=== PATIENT | female | born 1980 | race Two or more races ===

== ENCOUNTER 2019-11-07 09:05 | Outpatient (CLI) | payer MEDICAID ==
[~2019-11-07 09:05] MED LIST: HYDR-3237 PO
[2019-11-07] MEDS ORDERED: HYDR-3237 PO (09:39)
[2019-11-07 09:48] LABS: BASOPHILS # (AUTO) 0.04 x10^3/uL (0-0.1); BASOPHILS % (AUTO) 0 % (0-1); EOSINOPHILS # (AUTO) 0.16 x10^3/uL (0-0.4); EOSINOPHILS % (AUTO) 2 % (1-7); LYMPHOCYTES # (AUTO) 2.98 x10^3/uL (1-3.4); LYMPHOCYTES % (AUTO) 32 % (22-44); MD NO; MEAN CORPUSCULAR HEMOGLOBIN 31.1 pg (27.0-34.8); MEAN CORPUSCULAR HGB CONC 33.4 g/dL (32.4-35.8); MEAN CORPUSCULAR VOLUME 92.9 fL (80-100); MEAN PLATELET VOLUME 7.6 fL (7.4-10.4); MONOCYTES # (AUTO) 0.48 x10^3/uL (0.2-0.8); MONOCYTES % (AUTO) 5 % (2-9); NEUTROPHILS # (AUTO) 5.81 x10^3/uL (1.8-6.8); NEUTROPHILS % (AUTO) 61 % (42-75); PLATELET COUNT 353 x10^3/uL (130-400); RED CELL DISTRIBUTION WIDTH 12.7 % (9.6-15.2)
[2019-11-07 09:54] LABS: INTERNATIONAL NORMALIZED RATIO 0.94 (0.93-1.1)
[2019-11-07 09:55] LABS: ANION GAP 7 mmol/L (5-15); CALCIUM 8.8 mg/dL (8.5-10.1); CHLORIDE 104 mmol/L (98-107); CREATININE 0.77 mg/dL (0.55-1.02)
== END 2019-11-07 23:59 | disposition home or self-care (01) ==
LOC: STAR 09:05
PROVIDERS: ATTEND Neurological Surgery
DX: Z01.818 Encounter for other preprocedural examination (principal); M51.26 Other intervertebral disc displacement, lumbar region
CPT/HCPCS: 36415; 71046; 80048; 85025; 85610; 85730; 93005

== ENCOUNTER 2020-04-11 08:00 | Outpatient (CLI) | payer MEDICAID ==
[2020-04-11] MEDS ORDERED: ERGO500017 PO (15:01)
[2020-04-11] MEDS ORDERED: OMEG1CAP23 PO (15:01)
[2020-04-11] MEDS ORDERED: IBUP-1222 PO (15:01)
[2020-04-11 15:10] LABS: BASOPHILS # (AUTO) 0.04 x10^3/uL (0-0.1); BASOPHILS % (AUTO) 0 % (0-1); EOSINOPHILS # (AUTO) 0.23 x10^3/uL (0-0.4); EOSINOPHILS % (AUTO) 2 % (1-7); LYMPHOCYTES # (AUTO) 3.15 x10^3/uL (1-3.4); LYMPHOCYTES % (AUTO) 31 % (22-44); MD NO; MEAN CORPUSCULAR HEMOGLOBIN 29.7 pg (27.0-34.8); MEAN CORPUSCULAR HGB CONC 33.3 g/dL (32.4-35.8); MEAN CORPUSCULAR VOLUME 89.3 fL (80-100); MEAN PLATELET VOLUME 8.6 fL (7.4-10.4); MONOCYTES # (AUTO) 0.73 x10^3/uL (0.2-0.8); MONOCYTES % (AUTO) 7 % (2-9); NEUTROPHILS # (AUTO) 5.89 x10^3/uL (1.8-6.8); NEUTROPHILS % (AUTO) 59 % (42-75); PLATELET COUNT 274 x10^3/uL (130-400); RED BLOOD COUNT 4.39 x10^6/uL (3.82-5.3); RED CELL DISTRIBUTION WIDTH 13.2 % (9.6-15.2)
[2020-04-11 15:11] LABS: MICROSCOPIC INDICATED
== END 2020-04-11 23:59 | disposition home or self-care (01) ==
LOC: STAR 08:00
PROVIDERS: ATTEND Obstetrics & Gynecology
DX: Z01.818 Encounter for other preprocedural examination (principal); R10.2 Pelvic and perineal pain; N83.209 Unspecified ovarian cyst, unspecified side
CPT/HCPCS: 36415; 81001; 84703; 85025

== ENCOUNTER 2020-04-18 05:36 | Day surgery (SDC) | payer MEDICAID ==
[~2020-04-18] VITALS: Ht 165.1 cm; Wt 68.0 kg
[~2020-04-18 05:36] MED LIST changes: +ERGO500017 PO; +IBUP-1222 PO; +OMEG1CAP23 PO
[2020-04-18] MEDS ORDERED: LACTATED RINGERS 1,000 ML IV SCH (06:34)
[2020-04-18] MEDS ORDERED: LABETALOL 5MG/ML, 20ML IV PRN (07:00)
[2020-04-18] MEDS ORDERED: DIPHENHYDRAMINE 50 MG/ML, 1ML IVPush PRN (07:00)
[2020-04-18] MEDS ORDERED: ACETAMINOPHEN 325 MG TABLET PO PRN (07:00)
[2020-04-18] MEDS ORDERED: DIAZEPAM 5 MG/ML, 2ML IVPush PRN (07:00)
[2020-04-18] MEDS ORDERED: EPHEDRINE 50 MG/ML, 1ML IVPush PRN (07:00)
[2020-04-18] MEDS ORDERED: CHLORHEXIDINE 15 ML UDC MM ONE (07:00)
[2020-04-18] MEDS ORDERED: HYDROcodone/APAP 7.5-325MG/15ML UDC PO PRN (07:00)
[2020-04-18] MEDS ORDERED: KETOROLAC 30 MG/1 ML IVPush PRN (07:00)
[2020-04-18] MEDS ORDERED: ONDANSETRON 2MG/ML, 2ML IVPush PRN ×2 (07:00→17:30)
[2020-04-18] MEDS ORDERED: ALBUTEROL/IPRATROPIUM 2.5MG/0.5MG, 3 ML NPPB PRN (07:00)
[2020-04-18] MEDS ORDERED: morphine SULFATE 10 MG/ML, 1ML IVPush PRN ×2 (07:00→17:30)
[2020-04-18] MEDS ORDERED: HALOPERIDOL 5 MG/ML IV PRN (07:00)
[2020-04-18] MEDS ORDERED: LORazepam 2 MG/ML, 1ML IVPush PRN (07:00)
[2020-04-18] MEDS ORDERED: MIDAZOLAM 1 MG/ML, 2ML IV PRN (07:00)
[2020-04-18] MEDS ORDERED: METOCLOPRAMIDE 5 MG/ML, 2ML IVPush PRN (07:00)
[2020-04-18] MEDS ORDERED: MEPERIDINE/PF 25MG/0.5ML IVPush PRN (07:00)
[2020-04-18] MEDS ORDERED: METHOCARBAMOL 1,000 MG in DEXTROSE 5% 100 ML IV PRN (07:00)
[2020-04-18] MEDS ORDERED: EPHEDRINE 50 MG/ML, 1ML IM PRN (07:00)
[2020-04-18] MEDS ORDERED: HYDROmorphone 1 MG/ML, 1ML INJ IVPush PRN (07:00)
[2020-04-18] MEDS ORDERED: BUPIVACAINE/PF-EPI 0.25% 1:200K ONE (07:10)
[2020-04-18 07:12] LABS: HCG UR SG 1.027 (1.003-1.030)
[2020-04-18] MEDS ORDERED: KETAMINE 10 MG/ML, 20ML ONE (07:12)
[2020-04-18] MEDS ORDERED: LABETALOL 5MG/ML, 20ML ONE (07:12)
[2020-04-18] MEDS ORDERED: MAGNESIUM SULFATE 1 GM/2 ML ONE (07:12)
[2020-04-18] MEDS ORDERED: LIDOCAINE 1%, 20ML ONE (07:13)
[2020-04-18] MEDS ORDERED: ROCURONIUM 10MG/ML,5ML ONE (07:18)
[2020-04-18] MEDS ORDERED: PROPOFOL 10 MG/ML, 20ML ONE (07:18)
[2020-04-18] MEDS ORDERED: LIDOCAINE-MPF 2% ,5ML ONE (07:18)
[2020-04-18] MEDS ORDERED: DEXAMETHASONE 4 MG/ML, 1ML ONE (07:18)
[2020-04-18] MEDS ORDERED: GLYCOPYRROLATE 0.2MG/1ML, 5ML ONE (07:18)
[2020-04-18] MEDS ORDERED: MIDAZOLAM 1 MG/ML, 2ML ONE (07:19)
[2020-04-18] MEDS ORDERED: FENTANYL PF 100 MCG/2ML ONE ×3 (07:19→10:57)
[2020-04-18] MEDS ORDERED: SCOPOLAMINE 1MG PATCH TD ONE ×2 (07:25→07:30)
[2020-04-18] MEDS ORDERED: ONDANSETRON 2MG/ML, 2ML ONE (07:34)
[2020-04-18] MEDS ORDERED: CEFAZOLIN 1,000 MG ONE (07:34)
[2020-04-18] MEDS ORDERED: BUPIVACAINE/PF-EPI 0.25% 1:200K INFIL ONE (08:20)
[2020-04-18] MEDS: FENTANYL PF 100 MCG/2ML IV PRN ×3 (10:39→10:59)
[2020-04-18] MEDS ORDERED: KETOROLAC 30 MG/1 ML ONE (10:48)
[2020-04-18] MEDS ORDERED: OXYcodone 5 MG/5 ML ORAL.SOL UDC ONE (11:00)
[2020-04-18] MEDS: OXYcodone 5 MG/5 ML ORAL.SOL UDC PO PRN ×2 (11:01→15:25)
[2020-04-18 17:00] VITALS: BP 121/72
[2020-04-18] MEDS ORDERED: SIMETHICONE 80 MG CHEW TAB PO SCH (17:30)
[2020-04-18] MEDS: KETOROLAC 30 MG/1 ML IVPush PRN (17:40)
[2020-04-18 19:30] VITALS: BP 107/62
[2020-04-18] MEDS: OXYcodone/APAP 5/325MG TABLET PO PRN (20:02)
[2020-04-19 02:00] VITALS: BP 112/78
[2020-04-19] MEDS: KETOROLAC 30 MG/1 ML IVPush PRN (07:38)
[2020-04-19 08:30] VITALS: BP 96/64
[2020-04-19] MEDS: OXYcodone/APAP 5/325MG TABLET PO PRN ×2 (09:09→10:51)
[2020-04-19] MEDS ORDERED: OXYC-302 PO (10:33)
[2020-04-19] MEDS ORDERED: DOCU-131 PO (10:34)
[2020-04-19] MEDS ORDERED: IBUPROFEN 600 MG TABLET PO SCH (11:00)
== END 2020-04-19 10:50 | disposition home or self-care (01) ==
LOC: OUT 05:36 → 2NW 18:06 → UNDOADMIN 18:06 → UNDODISIN 04-19 10:50 → OUT 04-19 10:50
PROVIDERS: ATTEND Obstetrics & Gynecology
DX: N94.6 Dysmenorrhea, unspecified (principal); Z20.828 Contact with and (suspected) exposure to other viral communicable diseases; N83.01 Follicular cyst of right ovary; N70.11 Chronic salpingitis; N88.8 Other specified noninflammatory disorders of cervix uteri; G89.29 Other chronic pain; R10.2 Pelvic and perineal pain; Z79.1 Long term (current) use of non-steroidal anti-inflammatories (NSAID); Z79.899 Other long term (current) drug therapy; Z98.51 Tubal ligation status; Z98.890 Other specified postprocedural states
CPT/HCPCS: 36415; 58552; 81025; 86850; 86900; 87635; 88307; J0690; J1100; J1885; J2250; J2405; J2704; J3010; J3475; J7120; G0378

== ENCOUNTER 2020-06-22 18:54 | Emergency (ER) | payer MEDICAID ==
[~2020-06-22] VITALS: Ht 165.1 cm; Wt 68.4 kg
[~2020-06-22 18:54] MED LIST changes: +DOCU-131 PO; +OXYC-302 PO
--- NOTE | 2020-06-22 19:35 | NUR ---
Patient presents to ER c/o periumbilical pain with nausea and diarrhea x1 day. Patient denies blood in stool, vomiting, or fever. Patient is in NAD. Respirations even and unlabored.
[2020-06-22] MEDS ORDERED: MORPHINE SULFATE 4 MG/ML, 1ML ONE ×2 (19:43→21:23)
[2020-06-22] MEDS ORDERED: ONDANSETRON 2MG/ML, 2ML ONE (19:43)
[2020-06-22] MEDS: MORPHINE SULFATE 4 MG/ML, 1ML IVPush PRN ×2 (19:52→21:24)
[2020-06-22 19:55] LABS: MICROSCOPIC AUTO
[2020-06-22 19:59] LABS: BASOPHILS # (AUTO) 0.02 x10^3/uL (0-0.1); BASOPHILS % (AUTO) 0 % (0-1); EOSINOPHILS # (AUTO) 0.15 x10^3/uL (0-0.4); EOSINOPHILS % (AUTO) 1 % (1-7); LYMPHOCYTES # (AUTO) 2.88 x10^3/uL (1-3.4); LYMPHOCYTES % (AUTO) 25 % (22-44); MD NO; MEAN CORPUSCULAR HEMOGLOBIN 30.6 pg (27.0-34.8); MEAN CORPUSCULAR HGB CONC 33.7 g/dL (32.4-35.8); MEAN CORPUSCULAR VOLUME 90.9 fL (80-100); MEAN PLATELET VOLUME 8.8 fL (7.4-10.4); MONOCYTES # (AUTO) 0.53 x10^3/uL (0.2-0.8); MONOCYTES % (AUTO) 5 % (2-9); NEUTROPHILS # (AUTO) 8.13 x10^3/uL (1.8-6.8); NEUTROPHILS % (AUTO) 70 % (42-75); PLATELET COUNT 269 x10^3/uL (130-400); RED BLOOD COUNT 4.44 x10^6/uL (3.82-5.3); RED CELL DISTRIBUTION WIDTH 13.3 % (9.6-15.2)
[2020-06-22] MEDS ORDERED: ONDANSETRON 2MG/ML, 2ML IVPush ONE (20:00)
[2020-06-22 20:06] LABS: ALANINE AMINOTRANSFERASE 33 U/L (12-78); ALBUMIN 3.6 g/dL (3.4-5.0); ANION GAP 6 mmol/L (5-15); CALCIUM 9.1 mg/dL (8.5-10.1); CHLORIDE 107 mmol/L (98-107); CREATININE 0.81 mg/dL (0.55-1.02)
[2020-06-22 20:08] LABS: ALKALINE PHOSPHATASE 83 U/L (45-117); BILIRUBIN,TOTAL 0.4 mg/dL (0.2-1.0); TOTAL PROTEIN 7.8 g/dL (6.4-8.2)
[2020-06-22] MEDS ORDERED: FAMOTIDINE 20 MG TABLET ONE (22:59)
[2020-06-22] MEDS ORDERED: MAALOX/HYOSCYAMINE/LIDOCAINE 45 ML BTL ONE (22:59)
[2020-06-22] MEDS ORDERED: MAALOX/HYOSCYAMINE/LIDOCAINE 45 ML BTL PO ONE (23:00)
[2020-06-22] MEDS ORDERED: FAMOTIDINE 20 MG TABLET PO ONE (23:00)
[2020-06-22] MEDS ORDERED: OMNIPAQUE 350 MG/ML, 100ML BOTTLE ONE (23:06)
[2020-06-23 00:16] VITALS: BP 113/72
--- NOTE | 2020-06-23 00:52 | NUR ---
Discharge instructions given. All questions and concerns addressed. Patient ambulatory with a steady gait. Belongings with patient.
== END 2020-06-23 00:54 | disposition home or self-care (01) ==
LOC: ED 20:45
DX: R10.13 Epigastric pain (principal); R10.33 Periumbilical pain; R11.2 Nausea with vomiting, unspecified; R19.7 Diarrhea, unspecified; Z90.710 Acquired absence of both cervix and uterus
CPT/HCPCS: 36415; 74177; 76700; 80053; 81001; 83690; 85025; 87086; 96374; 96375; 96376; 99285; J2270; J2405; Q9967; 99406

== ENCOUNTER 2020-10-23 17:24 | Emergency (ER) | payer MEDICAID ==
[~2020-10-23] VITALS: Ht 157.5 cm; Wt 67.9 kg
[2020-10-23] MEDS ORDERED: CYCLOBENZAPRINE 10 MG TABLET PO STA (18:41)
[2020-10-23] MEDS ORDERED: ONDANSETRON 2MG/ML, 2ML IVPush ONE (19:00)
[2020-10-23] MEDS ORDERED: KETOROLAC 30 MG/1 ML IVPush ONE (19:00)
[2020-10-23] MEDS ORDERED: HYDROmorphone 1 MG/ML, 1ML INJ IVPush PRN (19:00)
[2020-10-23] MEDS ORDERED: SODIUM CHLORIDE FLUSH 10ML SYR IVF ONE (19:00)
--- NOTE | 2020-10-23 19:07 | NUR ---
leaf tier: pt from lobby to room 34
[2020-10-23] MEDS ORDERED: CYCLOBENZAPRINE 10 MG TABLET ONE (19:22)
[2020-10-23] MEDS ORDERED: HYDROmorphone 2 MG/ML, 1ML ONE (19:35)
[2020-10-23] MEDS ORDERED: KETOROLAC 30 MG/1 ML ONE (19:35)
[2020-10-23] MEDS ORDERED: ONDANSETRON 2MG/ML, 2ML ONE (19:35)
--- NOTE | 2020-10-23 20:10 | NUR ---
PT REPORTS MILD RELIEF OF BACK PAIN FOLLOWING FINAL INSPECTOR AND TESTER. NO ADDITIONAL NEEDS AT THIS TIME. CALL LIGHT AND PERSONAL BELONGINGS WITHIN REACH.
[2020-10-23 21:06] VITALS: BP 133/69
--- NOTE | 2020-10-23 21:07 | NUR ---
Patient given discharge instructions and they have confirmed that they understand the instructions. Patient ambulatory with steady gait with use of personal walker to lobby.
== END 2020-10-23 21:19 | disposition home or self-care (01) ==
LOC: ED 20:02
DX: M51.36 Other intervertebral disc degeneration, lumbar region (principal); Z90.710 Acquired absence of both cervix and uterus; Z98.51 Tubal ligation status
CPT/HCPCS: 96374; 96375; 99284; J1170; J1885; J2405

== ENCOUNTER 2020-10-24 13:56 | Emergency (ER) | payer MEDICAID ==
[~2020-10-24] VITALS: Ht 157.5 cm; Wt 67.6 kg
--- NOTE | 2020-10-24 14:11 | NUR ---
PT AMBULATED STEADILY TO ROOM USING OWN WALKER.
[2020-10-24] MEDS ORDERED: SODIUM CHLORIDE FLUSH 10ML SYR IVF ONE (14:30)
[2020-10-24 14:37] LABS: BASOPHILS % (AUTO) 0 % (0-1); EOSINOPHILS % (AUTO) 1 % (1-7); LYMPHOCYTES % (AUTO) 26 % (22-44); MEAN CORPUSCULAR HEMOGLOBIN 31.1 pg (27.0-34.8); MEAN PLATELET VOLUME 8.6 fL (7.4-10.4); MONOCYTES % (AUTO) 5 % (2-9); NEUTROPHILS % (AUTO) 68 % (42-75); PLATELET COUNT 265 x10^3/uL (130-400); RED BLOOD COUNT 4.31 x10^6/uL (3.82-5.3); RED CELL DISTRIBUTION WIDTH 12.5 % (9.6-15.2)
[2020-10-24 14:39] LABS: MD NO
--- NOTE | 2020-10-24 14:44 | NUR ---
PT TO MRI
[2020-10-24 14:45] LABS: ALBUMIN 3.6 g/dL (3.4-5.0); ANION GAP 4 mmol/L (5-15); CALCIUM 8.9 mg/dL (8.5-10.1); CHLORIDE 106 mmol/L (98-107); CREATININE 0.83 mg/dL (0.55-1.02)
[2020-10-24] MEDS ORDERED: GADOTERATE 7.5 MMOL/15 ML VIAL ONE (15:16)
[2020-10-24] MEDS ORDERED: OXYcodone/APAP 5/325MG TABLET PO ONE (16:00)
[2020-10-24] MEDS ORDERED: OXYcodone/APAP 5/325MG TABLET ONE (16:07)
--- NOTE | 2020-10-24 16:13 | NUR ---
BREAK RN: DR UP IN TO RE-EVAL PT. PT MEDICATED ORDERED. PT AWARE OF TO BE DC'D.
[2020-10-24 16:14] VITALS: BP 113/61
--- NOTE | 2020-10-24 16:38 | NUR ---
BREAK RN: PT DRESSED AND READY TO GO. IV DC'D WITH CANNULA INTACT. NO SIG CHANGE IN PAIN AT THIS TIME. REVIEWED DC INSTRUCTIONS WITH PT, UNDERSTANDING VERBALIZED. PT LEFT AMB WITH USE OF ROLLING WALKER. PT TO CALL FAMILY/FRIEND FOR TRANSPORT HOME.
== END 2020-10-24 16:41 | disposition home or self-care (01) ==
LOC: ED 15:15
DX: M47.816 Spondylosis without myelopathy or radiculopathy, lumbar region (principal); M51.36 Other intervertebral disc degeneration, lumbar region; Z90.710 Acquired absence of both cervix and uterus; Z98.51 Tubal ligation status
CPT/HCPCS: 36415; 72158; 80048; 82040; 85025; 99285; A9575